=== PATIENT | male | born 1975 | race African-American/Black ===

== ENCOUNTER 2019-05-02 17:30 | Emergency (ER) | payer OTHER ==
[~2019-05-02] VITALS: Ht 182.9 cm; Wt 131.5 kg
[2019-05-02] MEDS ORDERED: NIFEDIPINE ER30 MG (17:46)
[2019-05-02] MEDS ORDERED: IRBESARTAN-HCT1 EAC1 (17:46)
[2019-05-02] MEDS ORDERED: TOPROL XL50 M1 (17:46)
[2019-05-02] MEDS ORDERED: VISTARIL25 MG PO (19:30)
== END 2019-05-02 19:50 | disposition home or self-care (01) ==
LOC: EDBD 17:30 → ER 17:30
DX: R00.2 Palpitations (principal); F41.8 Other specified anxiety disorders